=== PATIENT | male | born 1995 | race Asian ===

== ENCOUNTER 2020-12-28 21:19 | Emergency (ER) | payer OTHER ==
[~2020-12-28] VITALS: Ht 162.6 cm; Wt 67.5 kg
[2020-12-28 21:53] LABS: URINE BILIRUBIN NEGATIVE (Negative); URINE BLOOD TRACE (Negative); URINE CLARITY CLEAR; URINE COLOR YELLOW; URINE GLUCOSE-RANDOM* NEGATIVE (Negative); URINE KETONES NEGATIVE (Negative); URINE LEUKOCYTES-REFLEX NEGATIVE (Negative); URINE NITRITE-REFLEX NEGATIVE (Negative); URINE PROTEIN (DIPSTICK) NEGATIVE (Negative); URINE UROBILINOGEN 0.2 E.U./dl (0.2-1.0)
[2020-12-28 22:04] LABS: AMP/METHAMP Negative (Negative); BARBITURATES Negative (Negative); BENZODIAZEPINES Negative (Negative); COCAINE Negative (Negative); METHADONE Negative (Negative); OPIATES Negative (Negative); PCP Negative (Negative)
[2020-12-28 22:10] LABS: ABSOLUTE NEUTROPHILS 12.1 thou/uL (1.4-8.2); BASOPHILS 0.4 % (0.0-2.0); EOSINOPHILS 0.6 % (0.0-3.0); HEMATOCRIT 40.9 % (42.0-52.0); HEMOGLOBIN 14.2 gm/dL (14.0-18.0); LYMPHOCYTES 21.4 % (24.0-44.0); MCH 31.4 pg (26.0-34.0); MCHC 34.8 g/dL (28.0-37.0); MCV 90.5 fL (80.0-100.0); PLATELET COUNT 255 thou/uL (150-400); POLYS 71.6 % (36.0-66.0); RBC 4.52 mil/uL (4.50-6.00); RDW 13.3 % (10.5-14.5); WBC 16.8 thou/uL (4.0-11.0)
[2020-12-28 22:20] LABS: APTT 20.9 Seconds (24.5-32.8); INR 1.03; PROTIME 11.2 Seconds (10.5-12.1)
[2020-12-28 22:46] LABS: ANION GAP 14 mmol/L (7-16); BUN 14 mg/dL (7-18); CALCIUM 8.6 mg/dL (8.5-10.1); CHLORIDE 104 mmol/L (98-107); CO2 23 mmol/L (21-32); GLUCOSE 126 mg/dL (74-106); SODIUM 141 mmol/L (136-145)
[2020-12-28 22:47] LABS: POTASSIUM 3.7 mmol/L (3.5-5.1)
[2020-12-28 22:53] LABS: ALBUMIN 4.1 g/dL (3.4-5.0); SALICYLATE < 2.8 mg/dL (2.8-20.0); SGOT 44 U/L (15-37); SGPT 56 U/L (16-63); TOTAL BILIRUBIN 0.4 mg/dL (0.2-1.0); TOTAL PROTEIN 8.2 g/dL (6.4-8.2)
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
[2020-12-29 01:59] VITALS: BP 102/61
--- NOTE | 2020-12-31 07:03 | EKG ---
[place] [address] [facility] [employer] [place] [address] ELECTROCARDIOGRAM REPORT Name: STEPHANI SCHWAB Room #: DEP GURWINDER Wilkins#: [id number] Admission: 12/28/20 Attend Phys: Discharge: 12/29/20 Date of : [birth year] Report #: [id number] [facility] ED Test Date: 2020-12-28 Test Time: 21:28:52 Pat Name: STEPHANI SCHWAB Department: Room: Gender: M Eviction Specialist: ethel : 1995 Requested By: Lazara Singh Order Number: [id number] MD: Hernan Vasquez Measurements Intervals [place] Rate: 114 P: 66 KS: 171 QRS: 72 QRSD: 102 T: 55 QT: 325 QTc: 448 Interpretive Statements Sinus tachycardia ST elevation suggests acute pericarditis Baseline wander in lead(s) V3 No previous ECG available for comparison Electronically Signed On 12-31-2020 7:03:25 CDT by Hernan Vasquez [email or web address] <ELECTRONICALLY SIGNED> By: Hernan Vasquez MD, [facility] 12/31/20 [id number] Hernan Vasquez MD, FACC /EPI
== END 2020-12-29 02:26 | disposition home or self-care (01) ==
LOC: ER 21:19
PROVIDERS: Emergency Medicine
DX: F10.129 Alcohol abuse with intoxication, unspecified (principal); F12.10 Cannabis abuse, uncomplicated